=== PATIENT | male | born 1940 | race Two or more races ===

== ENCOUNTER 2022-07-25 16:15 | Inpatient (IN) | payer OTHER ==
[~2022-07-25] VITALS: Ht 182.9 cm; Wt 90.7 kg
[2022-07-30] MEDS ORDERED: LOSARTAN POTASS25 MG (11:20)
[2022-07-30] MEDS ORDERED: NORVASC2.5 MG (11:20)
[2022-07-30] MEDS ORDERED: TIZANIDINE HCL4 MG (11:20)
== END 2022-08-12 15:32 | disposition home or self-care (01) | DRG 330 ==
LOC: SURG 07-30 06:31 → O/R 07-30 06:31 → SURH 07-30 12:30 → SURG 07-30 17:02
PROVIDERS: ADMIT Surgery; ATTEND Surgery
PROC: 07BB4ZZ Excision of Mesenteric Lymphatic, Percutaneous Endoscopic Approach (ICD-10-PCS; 2022-07-30)
PROC: 0DTF4ZZ Resection of Right Large Intestine, Percutaneous Endoscopic Approach (ICD-10-PCS; principal; 2022-07-30 15:30)
PROC: 02HV33Z Insertion of Infusion Device into Superior Vena Cava, Percutaneous Approach (ICD-10-PCS; 2022-08-01)
DX: D12.2 Benign neoplasm of ascending colon (principal); K56.7 Ileus, unspecified; K91.89 Other postprocedural complications and disorders of digestive system; K91.870 Postprocedural hematoma of a digestive system organ or structure following a digestive system procedure; D12.3 Benign neoplasm of transverse colon; R59.0 Localized enlarged lymph nodes; G47.30 Sleep apnea, unspecified; J44.9 Chronic obstructive pulmonary disease, unspecified; Z20.822 Contact with and (suspected) exposure to COVID-19; I44.0 Atrioventricular block, first degree; I44.7 Left bundle-branch block, unspecified